=== PATIENT | male | born 1945 | race Caucasian/White ===

== ENCOUNTER 2018-09-04 06:02 | Day surgery (SDC) | payer SELFPAY ==
--- NOTE | 2018-09-03 18:46 | Pre-Procedure Note/Attestation ---
Pre-Procedure Note/Attestation Complete Prior to Procedure Planned Procedure: bilateral Procedure Narrative: Full facelift wtih submental and bilateral lateral brow lift. Indications for Procedure Pre-Operative Diagnosis: Dermantchalasis of face, neck and lateral eyebrows. Attestation I attest that I discussed the nature of the procedure; its benefits; risks and complications; and alternatives (and the risks and benefits of such alternatives ), prior to the procedure, with the patient (or the patient's legal sales solutions representative). I attest that, if there was a reasonable possibility of needing a blood transfusion, the patient (or the patient's legal sales solutions representative) was given the [facility] standardized written summary, pursuant to the Devin Alexandre Blood Safety Act ([place] Health and Safety Code # 1645, as amended). I attest that I re-evaluated the patient just prior to the surgery and that there has been no change in the patient's H&P. have reviewed and will sign the PMD H/P done a few weeks ago. I haev repeated that exam today 09/03/18 in my office. It is unchanged. Montana Torres MD Sep 03, 2018 18:46
--- NOTE | 2018-09-03 18:50 | Brief Operative Note ---
Immediate Post Operative Note Operative Note Chief Complaint: Dermatochalasis face, neck and lateral eyebrows Pre-op Diagnosis: Dermantchalasis of face, neck and lateral eyebrows. Procedure: Full facelift with submental and lateral brow lift. Post-op Diagnosis: same as pre-op Surgeon: Montana Torres Assembly Worker: none Additional Surgeons: none Anesthesiologist: Dr. Gloria Anesthesia: MAC Specimen: none Complications: none Condition: stable Fluids: D5LR Estimated Blood Loss: volume - 75 cc Drains: christin - submental Packing: none Implant(s) used?: No Montana Torres MD Sep 03, 2018 18:49
--- NOTE | 2018-09-03 18:53 | Discharge Instructions ---
Discharge Instructions Discharge Instructions Follow up with: Dr. Torres 09/05/18 in his office Diet: regular Resume Normal Activity?: No Activity: light activity Pneumonia Vaccine: pt refused vaccine Influenza Vaccine (May to Oct): pt refused vaccine Return to Work/School on: Sep 17, 2018 Special Instructions Pt has printed instructions which we have reviewed in my office on 09/03/18 For Surgical Patients Dressing Care: keep dry and clean May shower: No Contact your physician for: bleeding, pain, tenderness, redness, swelling, yellowish discharge in the op. site For Congestive Heart Failure Reminder Report to your physician any weight gain of 5 pounds or more in one week. Montana Torres MD Sep 03, 2018 18:53
[2018-09-04] VITALS (13 sets, daily range): BP systolic 108–135; BP diastolic 7–77
[~2018-09-04] VITALS: Ht 172.7 cm; Wt 70.8 kg
[~2018-09-04 06:02] MED LIST: AMLODIPINE BES2.5 MG ORAL; ATORVASTATIN CA80 MG ORAL; AVODART0.5 MG ORAL; DIOVAN HCT 3201 EAC1 ORAL; K-TAB ER20 MEQ PO; LEVOTHYROXINE75 MCG ORAL
[2018-09-04] MEDS ORDERED: Midazolam 2mg/2ml Inj ONE (06:58)
[2018-09-04] MEDS ORDERED: fentaNYL 100 mcg/2 mL IV ONE (06:58)
[2018-09-04] MEDS ORDERED: Bacitracin Oint 15gm Tube TOPIC ONE (07:01)
[2018-09-04] MEDS ORDERED: Bupivacaine 0.5% 10ml INJ ONE ×3 (07:01→10:47)
[2018-09-04] MEDS ORDERED: Lidocaine 1% 10mg/ml/Epi 0.005mg/ml 30ml vial INJ ONE ×2 (07:02→10:47)
[2018-09-04] MEDS ORDERED: Propofol 200mg/20ml IV ONE ×4 (07:05→10:19)
[2018-09-04] MEDS ORDERED: ceFAZolin sod 1 GM in D5W 55 ML IV ONE (07:20)
[2018-09-04] MEDS ORDERED: Lidocaine 1% MPF 10mg/ml 5ml ONE (07:28)
[2018-09-04] MEDS ORDERED: NS Irrig 1000ml ONE (07:30)
[2018-09-04] MEDS ORDERED: Sterile Water Irrig 1000ml IRRIG ONE (07:30)
[2018-09-04] MEDS ORDERED: LR 1000ml ONE (07:30)
[2018-09-04] MEDS ORDERED: Dexamethasone 4mg/ml vial IVP ONE (07:30)
--- NOTE | 2018-09-04 08:23 | Anethesia Preoperative Eval ---
Anesthesia Pre-op PMH/ROS General Date of Evaluation: Sep 04, 2018 Time of Evaluation: 07:12 Anesthesiologist: Carlin ASA Score: ASA 2 Mallampati Score Class I : Soft palate, uvula, fauces, pillars visible Class II: Soft palate, uvula, fauces visible Class III: Soft palate, base of uvula visible Class IV: Only hard plate visible Mallampati Classification: Class II Surgeon: Brian Diagnosis: Cosmetic apperance Surgical Procedure: Total facelift Anesthesia History: none Family History: no anesthesia problems Allergies: Uncoded Allergies: CONTRAST MEDIA-IODINE BASE (Allergy, Severe, 09/04/18) CREATININE LEVEL WENT UP DECONGESTANT COLD FORMULA (Allergy, Severe, 09/04/18) ELEVATED BLOOD PRESSURE Patient NPO?: Yes Past Medical History Cardiovascular: Reports: HTN - mild; Denies: CAD, CT, valve dz, arrhythmia, other Pulmonary: Denies: asthma, COPD, BROOKE, other Gastrointestinal/Genitourinary: Reports: GERD; Denies: CRI, ESRD, other Neurologic/Psychiatric: Denies: dementia, CVA, depression/anxiety, TIA, other Endocrine: Reports: hypothyroidism; Denies: DM, steroids, other HEENT: Denies: cataract (L), cataract (R), glaucoma, [place] (L), [place] (R), other Hematology/Immune: Denies: anemia, DVT, bleeding disorder, other Musculoskeletal/Integumentary: Denies: OA, RA, DJD, DDD, edema, other PMH Narrative: as above PSxH Narrative: cosmetic Sx, Cysto. Anesthesia Pre-op Phys. Exam Physician Exam Last Vital Signs Date Time Temp Pulse Resp B/P (MAP) Pulse Ox O2 Delivery O2 Flow Rate FiO2 09/04/18 06:36 Room Air 09/04/18 06:35 97.9 64 20 133/76 97 Constitutional: NAD Neurologic: CN 2-12 intact Cardiovascular: RRR, no M/R/G Respiratory: CTA Gastrointestinal: S/NT/ND Airway Exam Mallampati Score: Class II MO: full Neck: flexible ROM: full Teeth: intact Dentures: no upper, no lower Anesthesia Pre-op A/P Labs see chart Studies Pre-op Studies: EKG - NSR Risk Assessment & Plan Assessment: ASA 2 Plan: MAC with local Status Change Before Surgery: No Pre-Antibiotics Drug: Ancef 1gr. Given Within 1 Hr of Incision: Yes Time Given: 07:45 Anthony Gillis MD Sep 04, 2018 08:23
[2018-09-04] MEDS ORDERED: Hydromorphone 0.5mg/0.5ml inj IVP PRN (08:30)
[2018-09-04] MEDS ORDERED: Ketorolac 30mg Inj IV PRN (08:30)
[2018-09-04] MEDS ORDERED: DiphenhydrAMINE 50mg/ml Inj IVP PRN (08:30)
[2018-09-04] MEDS ORDERED: Acetaminophen (Non formulary) 100 ML IV ONE (10:30)
[2018-09-04] MEDS ORDERED: Metoclopramide 10mg/2ml Inj IVP PRN (11:30)
[2018-09-04] MEDS ORDERED: Norco 5mg/325mg tab ORAL PRN (11:30)
[2018-09-04] MEDS ORDERED: HYDROmorphone 1mg/ml Carpuject SUBQ PRN (11:30)
--- NOTE | 2018-09-04 11:31 | Immediate Post-Op Evaluation ---
Immediate Post-Op Evalulation Immediate Post-Op Evalulation Procedure: Complete facelift Date of Evaluation: Sep 04, 2018 Time of Evaluation: 11:30 IV Fluids: 800 Blood Products: none Estimated Blood Loss: 100 Urinary Output: none Blood Pressure Systolic: 125 Blood Pressure Diastolic: 78 Pulse Rate: 78 Respiratory Rate: 20 O2 Sat by Pulse Oximetry: 99 Temperature (Fahrenheit): 97.6 Pain Score (1-10): 2 Nausea: No Vomiting: No Complications none Patient Status: awake, patent Hydration Status: adequate Anthony Gillis MD Sep 04, 2018 11:31
--- NOTE | 2018-09-04 13:37 | 48 Hour Post Anesthesia Eval ---
Post Anesthesia Evaluation Procedure: Complete facelift Date of Evaluation: Sep 04, 2018 Time of Evaluation: 13:36 Blood Pressure Systolic: 131 0: 67 Pulse Rate: 62 Respiratory Rate: 20 Temperature (Fahrenheit): 97.6 O2 Sat by Pulse Oximetry: 98 Airway: patent Nausea: No Vomiting: No Pain Intensity: 1 Hydration Status: adequate Cardiopulmonary Status: stable Mental Status/LOC: patient returned to baseline Follow-up Care/Observations: n/a Post-Anesthesia Complications: none Follow-up care needed: ready to discharge Anthony Gillis MD Sep 04, 2018 13:37
--- NOTE | 2018-09-04 15:30 | Operative Note - Dictated ---
DATE OF OPERATION: 09/04/2018 SURGEON: Montana Torres M.D. AXMINSTER WEAVER: None. ANESTHESIOLOGIST: Dr. Avalos. ANESTHESIA: IV sedation as well as 60 mL 50:50 mixture of 0.5% bupivacaine and 1% lidocaine with 1000 epinephrine. This was initially 30 injected and the remaining 30 injected over the remainder of the approximate 3 hours of the case in different areas. PREOPERATIVE DIAGNOSIS: Dermatochalasis of the face and neck as well as drooping lateral eyebrows. POSTOPERATIVE DIAGNOSIS: Dermatochalasis of the face and neck as well as drooping lateral eyebrows. FINDING: Dermatochalasis of the face and neck as well as drooping lateral eyebrows. PROCEDURE: Facelift submental including and lateral eyebrow lift included. TECHNIQUE: The patient prepped and draped in usual manner. Time-out was performed. I then injected the right and left midface and neck with the aforementioned lidocaine, Sensorcaine, epinephrine mixture. I then proceeded to start on the left neck incision, which I had made in 2005 or 2006 and cut out the scar tissue in front and behind the ear. This then was elevated with a small Metzenbaum scissors. There was minimal bleeding there. Fortunately, there was nice scar tissue from a previous procedure and the plane was easily found. I then developed this mass, cut out tissue anterior to the tragus, and pulled this mass back both from the platysma and from the cheek to flatten out the face and removed approximately an inch and half of skin. This was closed with an after cutting darts and cutting out extra tissue. This was closed with 4-0 plain suture deep and 5-0 Prolene anteriorly and 4-0 Prolene posteriorly. The same was done on the contralateral side, which would be the right. I then turned my attention to the submental. A curvilinear incision was made. I went down between the platysma and tied these together. This was done with Mersilene. I then closed with a 4-0 plain suture deep and 6-0 Prolene in the incision. I did put a drain in the submental. I then proceeded to turn my attention to the eyebrow and made an incision in the hairline, tunneled this subcutaneously to above the eyebrow and existing line, made a small incision, placed a Mersilene and pulled back through, and then tied it superiorly. Each lateral eyebrow was approximately 2 centimeters from the lateral crease. Same procedure done on the lateral left side as well. Both these incisions were closed with 6-0 Prolene horizontal mattress suture and then tissue glue placed over this. We then cleaned the patient with wet lap and then a dry lap. Antibiotic ointment, Telfa, cotton, and netting was placed over and tape over this to hold everything in place. The patient was stable and awake in the operating room prior to transfer to the recovery room. EBL: Approximately 75 mL. COMPLICATIONS: None. DRAINS: One Deedee in the submental area. He is scheduled to see me tomorrow in my office at 11:15. Montana Torres M.D. DR: NIGEL JOB#: [id number] CC: ANNA
== END 2018-09-04 14:00 | disposition home or self-care (01) ==
LOC: SUR 06:02
DX: L98.7 Excessive and redundant skin and subcutaneous tissue (principal); H57.813 Brow ptosis, bilateral; I10 Essential (primary) hypertension; E78.5 Hyperlipidemia, unspecified; E03.9 Hypothyroidism, unspecified; K21.9 Gastro-esophageal reflux disease without esophagitis; Z86.010 Personal history of colon polyps; Z86.19 Personal history of other infectious and parasitic diseases; Z79.82 Long term (current) use of aspirin; Z87.891 Personal history of nicotine dependence; Z91.041 Radiographic dye allergy status
CPT/HCPCS: 15825; 67900; J0690; J2250; J2704; J3010; J3490; 94003; 94150